=== PATIENT | female | born 1985 | race Caucasian/White ===

== ENCOUNTER 2019-02-23 12:58 | Day surgery (SDC) | payer OTHER ==
[~2019-02-23] VITALS: Ht 160 cm; Wt 82.6 kg
[2019-02-23] VITALS (18 sets, daily range): BP systolic 101–147; BP diastolic 50–85; PULSE 84–100; RESP 16–32; Ht 160 cm; Wt 82.6 kg
[~2019-02-23 12:58] MED LIST: CEFAZOLIN 1 GM INJ ONE; GLYCOPYRROLATE 0.4 MG INJ ONE; LIDOCAINE 2% (SDV) 5 ML INJ ONE; MEPERIDINE 100 MG INJ ONE; METOCLOPRAMIDE 10 MG INJ ONE; MIDAZOLAM 1 MG/ML 2 ML INJ ONE; NEOSTIGMINE 3 MG/3 ML SYRINGE ONE; ONDANSETRON 4 MG INJ ONE; PROPOFOL 20 ML ONE; ROCURONIUM 50 MG INJ ONE; ROPIVACAINE 0.5 % 30 ML VIAL ONE; SUCCINYLCHOLINE CHLORIDE 100 MG/5 ML SYG IV ONE
[2019-02-23] MEDS ORDERED: MELO15TA30 ORAL (13:39)
[2019-02-23] MEDS ORDERED: SOD CHLORIDE 0.9% 1,000 ML IV SCH (15:00)
[2019-02-23] MEDS ORDERED: CEFAZOLIN 2 GM/50 ML (PMX) 50 ML IVPB ONE (15:00)
--- NOTE | 2019-02-23 16:14 | PREAC ---
Date/Time of Note Date/Time of Note DATE: 02/23/19 TIME: 16:12 Anesthesia Eval and Record Evaluation Time Pre-Procedure Interview DATE: 02/23/19 TIME: 16:12 Age 33 Sex female NPO: 8 hrs Preoperative diagnosis gallstones Planned procedure Lap Maria C Past Medical History Past Medical History: Includes GI: Obesity Surgery & Anesthesia Issues No known issue Meds Anticoagulation: No Beta Yang within 24 hr: No Reason Beta Yang not given: Pt. not on B-Yang Reported Medications Meloxicam* (Mobic*) 15 Mg Tablet, 1 TAB ORAL DAILY PRN for PAIN LEVEL 6-10 02/23/19 Current Medications Sodium Chloride 1,000 ml @ 75 mls/hr [id number] IV ; Start 02/23/19 at 15:00; Stop 02/23/19 at 22:00 Meds reviewed: Yes Allergies Coded Allergies: No Known Allergy (Unverified , 02/23/19) Allergies Reviewed: Yes Labs/Studies Labs Reviewed: Reviewed by anesthesiologist Result Diagram: 02/23/19 1339 02/23/19 1339 Laboratory Tests 02/23/19 13:39 test: Negative Pre-procedure Exam Last vitals Vital Signs Date Temp Pulse Resp B/P (MAP) Pulse Ox O2 O2 Flow FiO2 Time Delivery Rate 02/23/19 98.3 89 16 126/85 98 Room Air 13:52 (99) Airway: Adequate mouth opening, Adequate thyromental dist Mallampati: Mallampati II Teeth: Abnormal (Pt has synthetic front teeth which were "glued in from tooth glue from [employer]". Pt states she cannot remove the teeth as she has had it for over a month and eats with them normally without them coming out. Risks of teeth coming out during intubation/extubation explained. Pt would like to proceed with surgery.) Lung: Normal Heart: Normal ASA Physical Status ASA physical status: 2 Emergency: None Planned Anesthetic General/MAC: ETT Pre-operative Attestations Prior to commencing anesthesia and surgery, the patient was re-evaluated, there was verification of: *The patient's identity *The results of appropriate recent lab work and preoperative vital signs *The above evaluation not changing prior to induction *Anesthetic plan, risk benefits, alternative and complications discussed with patient/family; questions answered; patient/family understands, accepts and wishes to proceed. TANNA SHELTON Feb 23, 2019 16:14
[2019-02-23] MEDS ORDERED: BUPIVACAINE 0.25% (MPF) 30 ML INJ ONE (16:15)
[2019-02-23] MEDS ORDERED: FENTAnyl 50 MCG/ML VIAL ONE (16:28)
[2019-02-23] MEDS ORDERED: ONDANSETRON 4 MG INJ IV PRN (16:30)
[2019-02-23] MEDS ORDERED: DIPHENHYDRAMINE 50 MG INJ IV PRN (16:30)
[2019-02-23] MEDS ORDERED: MEPERIDINE 25 MG INJ IV PRN (16:30)
[2019-02-23] MEDS ORDERED: ALBUTEROL 0.083% (NEB) 2.5 MG/3 ML AMP HHN PRN (16:30)
[2019-02-23] MEDS ORDERED: METOCLOPRAMIDE 10 MG INJ IV PRN (16:30)
[2019-02-23] MEDS ORDERED: FENTAnyl 50 MCG/ML VIAL IV PRN ×2 (16:30)
[2019-02-23] MEDS ORDERED: HYDROmorphONE 1 MG/5 ML IV SYRINGE IV PRN ×3 (16:30)
[2019-02-23] MEDS ORDERED: ROPIVACAINE 0.2% 20 ML VIAL ONE (16:38)
[2019-02-23] MEDS ORDERED: SUGAMMADEX SODIUM 200 MG/2 ML VIAL IV ONE (17:13)
[2019-02-23] MEDS ORDERED: CEFAZOLIN 1 GM INJ ONE (17:13)
[2019-02-23] MEDS ORDERED: PROPOFOL 20 ML ONE (17:13)
[2019-02-23] MEDS ORDERED: LIDOCAINE 100 MG SYRINGE ONE (17:13)
[2019-02-23] MEDS ORDERED: ROCURONIUM 50 MG INJ ONE (17:13)
[2019-02-23] MEDS ORDERED: SUCCINYLCHOLINE CHLORIDE 100 MG/5 ML SYG IV ONE (17:13)
--- NOTE | 2019-02-23 17:19 | OPR ---
Date/Time of Note Date/Time of Note DATE: 02/23/19 TIME: 17:16 Operative Report Procedure Date: Feb 23, 2019 Preoperative Diagnosis symptomatic gallstones Postoperative Diagnosis same Operation/Procedure Performed laparoscopic cholecystectomy Surgeon see signature line Business Development Professional none Anesthesia Type: general Estimated Blood Loss: 0 - 10 ml's Transfusion none Specimen gallbladder Grafts/Implants none Complications none Pt Condition Post Procedure: stable Indications This is a 33-year-old female with symptomatic gallstones. She required surgical excision of her gallbladder. Risks alternatives benefits and personal were discussed with the patient. Potential complications including but not limited to bleeding infection, bladder injury injury to surrounding structures were discussed the patient. Patient expressed understanding and consents to the operation. Procedure Description Patient is taken to the OR and prepped and draped in usual sterile fashion. Surgical timeout was performed. IV antibiotics given. Infraumbilical transverse incision was made with a 15 blade. Dissection with cautery was carried onto the fascia. The fascia was grasped with Corey's and divided with curved scissors. 0 Vicryl use this was placed into the fascia. Hodgson trocar was introduced. Pneumoperitoneum is established. Midepigastric 12 mm optical trochars placed under direct visualization. Right upper quadrant upper flank 5 mm optical trochars were placed under direct visualization. Upon initial inspection there is some adhesions to the gallbladder which were taken down bluntly. The gallbladder is grasped the fundus and retracted and lateral cephalad direction. [place] graspers were used to dissect out the cystic duct and cystic artery. The critical view was established. The cystic duct was divided to close proximal clip distal and the division is performed laparoscopic scissors. Cystic artery was divided with the clips proximal 1 clip distal and the division was performed laparoscopic scissors. The gallbladder was taken of the gallbladder bed. Good hemostasis established. The gallbladder is retrieved using Endo Catch bag. All ports were removed under direct visualization. 0 Vicryl use this was tied down. Skin is closed and skin alexa. Subcutaneous therapeutic anesthesia was injected at the incision site. Dry dressings were applied. Macho LOPEZ Feb 23, 2019 17:19
[2019-02-23] MEDS ORDERED: HYDROCODONE/APAP (5/325) TAB PO ONE (17:30)
--- NOTE | 2019-02-24 07:18 | PAC ---
Date/Time of Note Date/Time of Note DATE: 02/24/19 TIME: 07:18 Post-Anesthesia Notes Post-Anesthesia Note Last documented vital signs Vital Signs Date Temp Pulse Resp B/P (MAP) Pulse Ox O2 O2 Flow FiO2 Time Delivery Rate 02/23/19 18 101/52 95 Room Air 18:47 (68) 02/23/19 98.7 88 18:42 02/23/19 6.0 17:32 Activity: WNL Respiratory function: WNL Cardiovascular function: WNL Mental status: Baseline Pain reasonably controlled: Yes Hydration appropriate: Yes Nausea/Vomiting absent: Yes TANNA SHELTON Feb 24, 2019 07:18
== END 2019-02-23 19:22 | disposition home or self-care (01) ==
LOC: SDS 12:58
PROVIDERS: ATTEND Surgery
DX: K80.10 Calculus of gallbladder with chronic cholecystitis without obstruction (principal)
CPT/HCPCS: 47562; 80053; 85025; 85610; 85730; J0690; J1170; J2001; J2175; J2250; J2405; J2710; J2765; J2795; J3010; Z7512; Z7610; 88304